=== PATIENT | female | born 1995 | race Two or more races ===

== ENCOUNTER 2016-11-27 22:33 | Emergency (ER) | payer MEDICAID ==
[~2016-11-27] VITALS: Ht 162.6 cm; Wt 81.6 kg
[2016-11-27 22:35] VITALS: BP 155/93
== END 2016-11-27 23:30 | disposition left against medical advice (07) ==
LOC: ER 22:33
DX: R10.9 Unspecified abdominal pain (principal); M54.9 Dorsalgia, unspecified; Z53.21 Procedure and treatment not carried out due to patient leaving prior to being seen by health care provider

== ENCOUNTER 2020-10-29 11:34 | Emergency (ER) | payer MEDICAID ==
[~2020-10-29] VITALS: Ht 162.6 cm; Wt 86.2 kg
[2020-10-29 11:38] VITALS: BP 142/89
[2020-10-29] MEDS ORDERED: KETOROLAC TROMETH 60MG/2ML VIAL IM ONE (14:00)
[2020-10-29] MEDS ORDERED: ONDANSETRON ODT 4 MG TAB PO ONE (14:00)
== END 2020-10-29 14:34 | disposition home or self-care (01) ==
LOC: ER 11:34
DX: G43.909 Migraine, unspecified, not intractable, without status migrainosus (principal)
CPT/HCPCS: 70450; 81025; 96372; 99285; J1885; Q0162